=== PATIENT | male | born 1940 | race Caucasian/White ===

== ENCOUNTER 2016-12-01 05:20 | Inpatient (IN) | payer OTHER ==
[~2016-12-01] VITALS: Ht 167.6 cm; Wt 144.5 kg
[~2016-12-01 05:20] MED LIST: ACID CONTROL150 MG PO; CELEXA40 MG PO; FLOMAX0.4 MG PO; FLONASE ALLERG9.9 ML BOTH NARES; IRON325 M1 PO; KLONOPIN0.5 M1 PO; LASIX20 MG PO; LEVO-T100 MCG PO; LIPITOR20 MG PO; LO-DOSE ASPIRIN81 M1 PO; LORCET 5-325 M1 EACH PO; MECLIZINE HCL25 MG PO; MELLARIL10 MG PO; POTASSIUM CHLO10 ME3 PO; ULTRAM50 MG PO
[2016-12-01 06:07] VITALS: BP 173/81
[2016-12-01 13:43] VITALS: BP 147/67
[2016-12-01 15:33] VITALS: BP 148/70
[2016-12-01 19:31] VITALS: BP 123/65
[2016-12-02 00:14] VITALS: BP 173/72
[2016-12-02 04:28] VITALS: BP 153/70
[2016-12-02 07:28] LABS: ANION GAP 5 MEQ/L (2-14); CHLORIDE 99 MEQ/L (99-109); GFR ESTIMATE (CALCULATED) > 59 mL/min/; GLUCOSE 134 mg/dL (70-99); POTASSIUM 4.8 MEQ/L (3.7-5.4); SAMPLE HEMOLYSIS CHECK 2; SAMPLE ICTERIC CHECK 0; SAMPLE LIPEMIA CHECK 0; SODIUM 134 MEQ/L (136-147); UREA NITROGEN (BUN) 15 mg/dL (9-23)
[2016-12-02 08:30] VITALS: BP 149/75
[2016-12-02 11:40] VITALS: BP 145/67
[2016-12-02 16:13] LABS: HEMATOLOGY COMMENT 1 SMEAR COMPATIBLE; USER ID SS
[2016-12-02 16:14] LABS: EOSINOPHIL (%) 0.9 % (0-5); EOSINOPHIL COUNT 0.1 K/uL (0-0.3); HEMATOCRIT 41.7 % (38.0-50.0); IMMATURE GRANULOCYTE (%) 0.5 % (0.0-0.7); IMMATURE GRANULOCYTE COUNT 0.1 K/uL; LYMPHOCYTE COUNT 1.3 K/uL (1.0-2.8); MCH 29.3 PG (29.0-34.0); MCHC 31.7 G/DL (30.0-36.0); MCV 92.7 FL (86-99); MEAN PLAT.VOLUME 9.3 uM^3 (9.0-12.4); MONOCYTE (%) 19.2 % (3-12); MONOCYTE COUNT 1.9 K/uL (0-0.8); NEUTROPHIL (%) 66.1 % (45-76); NEUTROPHIL COUNT 6.5 K/uL (1.8-6.4); PLATELET COUNT 189 K/uL (156-360); RBC DIS.WIDTH-CV 14.1 % (11.8-14.6); WHITE BLOOD COUNT 9.9 K/uL (4.1-10.2)
[2016-12-02 16:40] VITALS: BP 138/69
[2016-12-02 20:18] VITALS: BP 138/62
[2016-12-03 00:25] VITALS: BP 138/65
[2016-12-03 04:05] VITALS: BP 156/67
[2016-12-03 07:34] VITALS: BP 148/67
[2016-12-03 08:06] LABS: HEMATOCRIT 40.2 % (38.0-50.0); MCHC 32.1 G/DL (30.0-36.0); MCV 90.3 FL (86-99); MEAN PLAT.VOLUME 9.6 uM^3 (9.0-12.4); PLATELET COUNT 192 K/uL (156-360); RBC DIS.WIDTH-CV 13.9 % (11.8-14.6); RBC DIS.WIDTH-SD 45.9 % (39-53); RED BLOOD COUNT 4.45 M/uL (4.00-5.50); WHITE BLOOD COUNT 9.9 K/uL (4.1-10.2)
[2016-12-03 15:46] VITALS: BP 134/70
[2016-12-03 20:42] VITALS: BP 149/70
[2016-12-04 00:21] VITALS: BP 124/58
[2016-12-04 05:05] VITALS: BP 148/67
[2016-12-04 07:27] VITALS: BP 138/71
[2016-12-04] MEDS ORDERED: BENADRYL25 MG PO (10:28)
[2016-12-04] MEDS ORDERED: XARELTO10 MG PO (10:29)
[2016-12-04] MEDS ORDERED: SENNA PLUS TAB1 EACH PO (10:29)
[2016-12-04] MEDS ORDERED: HYDROCODON-ACE1 EAC7 PO (10:29)
== END 2016-12-04 14:13 | DRG 470 ==
LOC: 3EAST 05:20 → 2SOUTH 05:20 → 3EAST 13:22
PROVIDERS: Orthopaedic Surgery
PROC: 0SRD0J9 Replacement of Left Knee Joint with Synthetic Substitute, Cemented, Open Approach (ICD-10-PCS; principal; 2016-12-01)
DX: M17.12 Unilateral primary osteoarthritis, left knee (principal); Z68.43 Body mass index [BMI] 50.0-59.9, adult; E87.1 Hypo-osmolality and hyponatremia; F33.9 Major depressive disorder, recurrent, unspecified; E66.01 Morbid (severe) obesity due to excess calories; E03.9 Hypothyroidism, unspecified; R73.03 Prediabetes; M06.9 Rheumatoid arthritis, unspecified; G89.29 Other chronic pain; I25.10 Atherosclerotic heart disease of native coronary artery without angina pectoris; I10 Essential (primary) hypertension; K21.9 Gastro-esophageal reflux disease without esophagitis; N40.0 Benign prostatic hyperplasia without lower urinary tract symptoms; Z98.61 Coronary angioplasty status
CPT/HCPCS: 71010; 80048; 85025; 85027; 85730; 94799; C1713; J0690; J1885; J2250; J2405; J3010; J7050; J7120; L1820; S0020

== ENCOUNTER 2017-12-27 21:50 | Inpatient (IN) | payer OTHER ==
[~2017-12-27] VITALS: Ht 167.6 cm; Wt 135.2 kg
[~2017-12-27 21:50] MED LIST changes: +ASPIR 8181 M1 PO; +BENADRYL25 MG PO; +CIPRO500 MG PO; +HYDROCODON-ACE1 EAC7 PO; -LIPITOR20 MG PO; +LIPITOR40 MG PO; +SENNA PLUS TAB1 EACH PO; +XARELTO10 MG PO
[2017-12-28 06:02] VITALS: BP 137/65
[2017-12-28 10:26] VITALS: BP 177/72
[2017-12-28 15:57] VITALS: BP 132/61
[2017-12-28 20:17] VITALS: BP 115/56
[2017-12-29 00:19] VITALS: BP 127/58
[2017-12-29 04:33] VITALS: BP 105/60
[2017-12-29 08:00] VITALS: BP 123/60
[2017-12-29 08:22] LABS: CHLORIDE 103 MEQ/L (99-109); CREATININE 1.3 MG/DL (0.6-1.3); GFR ESTIMATE (CALCULATED) 57 mL/min/ (58.99-99999); GLUCOSE 109 mg/dL (70-99); POTASSIUM 4.4 MEQ/L (3.7-5.4); SODIUM 138 MEQ/L (136-147); UREA NITROGEN (BUN) 22 mg/dL (9-23)
[2017-12-29 12:24] VITALS: BP 131/67; BP 144/67
[2017-12-29 16:00] VITALS: BP 157/68
[2017-12-29 20:33] VITALS: BP 150/68
[2017-12-30 00:10] VITALS: BP 132/61
[2017-12-30 04:24] VITALS: BP 135/63
[2017-12-30 08:00] VITALS: BP 130/62
[2017-12-30] MEDS ORDERED: SENNA PLUS TAB1 EACH PO (08:47)
[2017-12-30] MEDS ORDERED: HYDROCODON-ACE1 EAC7 PO (08:48)
[2017-12-30] MEDS ORDERED: ELIQUIS2.5 MG PO (08:48)
[2017-12-30 12:00] VITALS: BP 129/60
[2017-12-30 15:40] VITALS: BP 123/58
== END 2017-12-30 17:10 | DRG 470 ==
LOC: ENRESERV 21:50 → 2SOUTH 12-28 05:10 → 3WEST 12-28 10:10 → 2SOUTH 12-28 12:14 → 3WEST 12-30 17:10
PROVIDERS: Orthopaedic Surgery
PROC: 0SRC0J9 Replacement of Right Knee Joint with Synthetic Substitute, Cemented, Open Approach (ICD-10-PCS; principal; 2017-12-28)
DX: M17.11 Unilateral primary osteoarthritis, right knee (principal); Z68.42 Body mass index [BMI] 45.0-49.9, adult; M06.9 Rheumatoid arthritis, unspecified; E66.9 Obesity, unspecified; R73.03 Prediabetes; E03.9 Hypothyroidism, unspecified; Z96.652 Presence of left artificial knee joint; Z96.612 Presence of left artificial shoulder joint
CPT/HCPCS: 80048; C1713; J0131; J0690; J1885; J2405; J2795; J7050; J7120; L1820; S0020

== ENCOUNTER 2018-03-05 08:38 | Emergency (ER) | payer OTHER ==
[~2018-03-05] VITALS: Ht 167.6 cm; Wt 129.6 kg
[~2018-03-05 08:38] MED LIST changes: +ELIQUIS2.5 MG PO
[2018-03-05 10:31] VITALS: BP 118/67
[2018-03-09] MEDS ORDERED: BACTRIM,SEPT1 TABLET PO (10:31)
[2018-03-09] MEDS ORDERED: ADULT ASPIRIN81 MG PO (10:32)
== END 2018-03-05 10:57 | disposition home or self-care (01) ==
LOC: EME 08:38
DX: S82.032A Displaced transverse fracture of left patella, initial encounter for closed fracture (principal); Y93.01 Activity, walking, marching and hiking; Z96.652 Presence of left artificial knee joint; Z88.5 Allergy status to narcotic agent; Z88.8 Allergy status to other drugs, medicaments and biological substances
CPT/HCPCS: 73564; 99281; 99284

== ENCOUNTER 2018-03-10 10:12 | Day surgery (SDC) | payer OTHER ==
[~2018-03-10] VITALS: Ht 167.6 cm; Wt 129.3 kg
[~2018-03-10 10:12] MED LIST changes: +ADULT ASPIRIN81 MG PO; +BACTRIM,SEPT1 TABLET PO
[2018-03-10 10:50] VITALS: BP 174/74
[2018-03-10 16:14] VITALS: BP 157/77
[2018-03-10 19:39] VITALS: BP 117/58
[2018-03-11 00:10] VITALS: BP 125/58
[2018-03-11 03:10] VITALS: BP 139/62
[2018-03-11 08:07] VITALS: BP 134/60
[2018-03-11] MEDS ORDERED: HYDROCODON-ACE1 EAC7 PO (09:43)
[2018-03-11] MEDS ORDERED: BACTRIM,SEPT1 TABLET PO (11:13)
== END 2018-03-11 11:45 | disposition home or self-care (01) ==
LOC: SDC 10:12 → 2SOUTH 14:30 → 2EAST 14:30 → ENRESERV 14:31 → SDC 15:23 → 2EAST 15:45
PROC: 0QSF04Z Reposition Left Patella with Internal Fixation Device, Open Approach (ICD-10-PCS; principal; 2018-03-10)
DX: S82.002A Unspecified fracture of left patella, initial encounter for closed fracture (principal); S86.822A Laceration of other muscle(s) and tendon(s) at lower leg level, left leg, initial encounter; Z96.652 Presence of left artificial knee joint; W10.9XXA Fall (on) (from) unspecified stairs and steps, initial encounter; Y93.01 Activity, walking, marching and hiking; I10 Essential (primary) hypertension; E78.00 Pure hypercholesterolemia, unspecified; E03.9 Hypothyroidism, unspecified; E11.9 Type 2 diabetes mellitus without complications; F32.9 Major depressive disorder, single episode, unspecified; Z79.82 Long term (current) use of aspirin
CPT/HCPCS: 73560; 76000; G0378; J0330; J0690; J1100; J1885; J2405; J3010; S0020